=== PATIENT | female | born 1965 | race Caucasian/White ===

== ENCOUNTER 2019-02-05 13:06 | Emergency (ER) | payer OTHER ==
[~2019-02-05] VITALS: Ht 172.7 cm; Wt 54.4 kg
[~2019-02-05 13:06] MED LIST: BACTRIM DS TAB1 EACH PO; DARVOCET-N 1001 EAC1 PO; NOHOMEMEDICATIONS
[2019-02-05] MEDS ORDERED: ALEVE220 MG PO (13:18)
[2019-02-05 14:05] VITALS: BP 160/73
== END 2019-02-05 14:05 | disposition left against medical advice (07) ==
LOC: M.ERS 13:06
DX: M25.561 Pain in right knee (principal); R60.0 Localized edema; Z88.5 Allergy status to narcotic agent